=== PATIENT | male | born 1990 | race African-American/Black ===

== ENCOUNTER 2021-02-03 19:57 | Emergency (ER) | payer OTHER ==
[~2021-02-03] VITALS: Ht 190.5 cm; Wt 104.3 kg
[2021-02-03 20:02] VITALS: BP 103/58
== END 2021-02-03 20:19 | disposition home or self-care (01) ==
LOC: ER 19:57
DX: E11.65 Type 2 diabetes mellitus with hyperglycemia (principal); E78.5 Hyperlipidemia, unspecified; F41.9 Anxiety disorder, unspecified; F32.9 Major depressive disorder, single episode, unspecified